=== PATIENT | male | born 1955 | race Two or more races ===

== ENCOUNTER 2018-01-13 08:32 | Outpatient (CLI) | payer OTHER | END 2018-01-13 08:37 | disposition home or self-care (01) | LOC: TOM 08:32 | DX: C61 Malignant neoplasm of prostate (principal) ==

== ENCOUNTER 2018-01-13 09:20 | Outpatient (CLI) | payer OTHER | END 2018-01-13 09:29 | disposition home or self-care (01) | LOC: NUCLEAR 09:20 | DX: C61 Malignant neoplasm of prostate (principal) | CPT/HCPCS: 78306; A9503 ==